=== PATIENT | female | born 1980 | race Caucasian/White ===

== ENCOUNTER 2018-04-16 06:53 | Emergency (ER) | payer MEDICAID ==
--- NOTE | 2018-04-16 08:33 | ER Document Report ---
ED General - General Chief Complaint: Leg Swelling Stated Complaint: RIGHT LEG BURNING Time Seen by Provider: 04/16/18 08:00 TRAVEL OUTSIDE OF THE [place] IN LAST 30 DAYS: No - HPI Notes: Patient is a 37-year-old female with no significant past medical history presents emergency department complaining of bruising to her right lateral calf that she noticed earlier this morning. Patient states that she noticed that her vein was sticking out of her leg yesterday and then noticed the bruising to that area today. Patient states that she does have some soreness associated, but is otherwise able to ambulate without any difficulties. She has not noticed any redness or abscess. Pain does not radiate. Denies any drug allergies. + smoker. Denies any prolonged immobilization, distance travel, recent fay rgery/trauma, personal cancer history, hormone use, or previous DVT/PE. Denies any headache, fever, URI, sore throat, chest pain, palpitations, syncope, cough, shortness of breath, wheeze, dyspnea, abdominal pain, nausea/vomiting/diarrhea, urinary retention, dysuria, hematuria, back pain, loss of control of bowel or bladder, numbness/tingling, saddle anesthesia, muscle paralysis/weakness, or rash. - Related Data Allergies/Adverse Reactions: No Known Allergies Allergy (Verified 04/16/18 08:27) Past Medical History - Social History Smoking Status: Current Every Day Smoker Frequency of alcohol use: None Drug Abuse: None Family History: Reviewed & Not Pertinent Patient has suicidal ideation: No Patient has homicidal ideation: No Renal/ Medical History: Denies: Hx Peritoneal Dialysis Past Surgical History: Reports: Hx Section - x3 Review of Systems - Review of Systems -: Yes All other systems reviewed and negative Physical Exam - Vital signs Vitals: Temp Pulse Resp BP Pulse Ox 98 F 92 18 126/74 H 99 04/16/18 07:02 04/16/18 07:02 04/16/18 07:02 04/16/18 07:02 04/16/18 07:02 - Notes Notes: PHYSICAL EXAMINATION: GENERAL: Well-appearing, well-nourished and in no acute distress. HEAD: Atraumatic, normocephalic. EYES: Pupils equal round and reactive to light, extraocular movements intact, sclera anicteric, conjunctiva are normal. ENT: Nares patent and without discharge. oropharynx clear without exudates. No tonsilar hypertrophy or erythema. Moist mucous membranes. NECK: Normal range of motion, supple without lymphadenopathy LUNGS: Breath sounds clear to auscultation bilaterally and equal. No wheezes rales or rhonchi. HEART: Regular rate and rhythm without murmurs, rubs, gallops. Musculoskeletal: Rt leg: FROM to passive/active. Strength 5+/5. N/V intact distal. No bony tenderness. Extremities: No cyanosis, clubbing, or edema b/l. Peripheral pulses 2+. Capillary refill less than 3 seconds. No LE asymmetry. Lucrecia neg b/l. NEUROLOGICAL: Normal speech, normal gait. Normal sensory, motor exams PSYCH: Normal mood, normal affect. SKIN: Rt LE: there is an area to the anterolateral rt calf that is ecchymotic with mild tenderness associated. No erythema, warmth, or deformity. No fluctuance or streaks. Course - Re-evaluation Re-evalutation: 04/16/18 10:28 Patient is an afebrile, well-hydrated, 37-year-old female who presents emergency department with superficial ecchymosis to her right anterolateral leg. I do suspect this condition to be benign. Vitals are acceptable without significant tachycardia, tachypnea, or hypoxia. PE is otherwise unremarkable for any neurovascular, otherwise, obvious tendon/leg rupture, obvious fracture/dislocation, DVT, septic joint. There is no evidence of foot drop. Doppler ultrasound was unremarkable for any acute pathology. Patient is nont oxic-appearing and is tolerating p.o. without difficulty. She is able to ambulate without any difficulties. No further labs or imaging warranted. Recheck with your PCM in 3-5 days. Return to the ED with any other worsening/concerning symptoms as reviewed. Patient is in agreement. - Vital Signs Vital signs: Temp Pulse Resp BP Pulse Ox 98 F 92 18 126/74 H 99 04/16/18 07:02 04/16/18 07:02 04/16/18 07:02 04/16/18 07:02 04/16/18 07:02 Discharge - Discharge Clinical Impression: Superficial bruising of lower leg Qualifiers: Encounter type: initial encounter Laterality: right Qualified Code(s): S80.11XA - Contusion of right lower leg, initial encounter Condition: Stable Disposition: HOME, SELF-CARE Additional Instructions: Keep the skin clean Wash with soap and water Tylenol/ibuprofen if needed Monitor for any worsening symptoms Recheck with your PCM in 3-5 days Return to the ED with any worsening symptoms and/or development of fever, headache, chest pain, palpitations, syncope, shortness of breath, trouble breathing, abdominal pain, n/v/d, abscess, purulent discharge, red streaks, worsening swelling, or other worsening symptoms that are concerning to you. Forms: Elevated Blood Pressure, Smoking Cessation Education Referrals: KALLI BEAN MD [ACTIVE STAFF] - Follow up as needed
--- NOTE | 2018-04-16 10:07 | RADIOLOGY REPORT (SQ) ---
EXAM DESCRIPTION: VENOUS UNILATERAL LOWER COMPLETED DATE/TIME: 04/16/2018 9:50 am REASON FOR STUDY: Rt lateral calf pain/ecchymosis COMPARISON: None. TECHNIQUE: Dynamic and static huddleston scale and color images acquired of the right leg venous system. S elected spectral images acquired with additional compression and augmentation maneuvers. The contrala teral common femoral vein and saphenofemoral junction were also imaged. Images stored on PACS. LIMITATIONS: None. FINDINGS: COMMON FEMORAL: Normal phasicity, compression and augmentation. No visualized echogenic ma terial on huddleston scale. No defects on color images. FEMORAL: Normal compression and augmentation. No visualized echogenic material on huddleston scale. No defe cts on color images. POPLITEAL: Normal compression, augmentation. No visualized echogenic material on huddleston scale. No defec ts on color images. CALF VESSELS: Normal compression, augmentation. No visualized echogenic material on huddleston scale. No de fects on color images. GSV and SSV: Normal compression, augmentation. No visualized echogenic material on huddleston scale. No def ects on color images. ANY DEEP VENOUS INSUFFICIENCY: Not evaluated. ANY EVIDENCE OF POPLITEAL CYST: No. OTHER: No other significant finding. CONTRALATERAL COMMON FEMORAL VEIN AND SAPHENOFEMORAL JUNCTION: Normal phasicity, compression and augmentation. No visualized echogenic material on huddleston scale. No de fects on color images. IMPRESSION: 1. NO EVIDENCE OF DVT OR SVT IN THE RIGHT LEG. TECHNICAL DOCUMENTATION: JOB ID: [id number] [employer]- All Rights Reserved Reading location - IP/workstation name: [email or web address]
[2018-04-16 10:47] VITALS: BP 115/80
== END 2018-04-16 10:47 | disposition home or self-care (01) ==
LOC: ER 06:53
DX: S80.11XA Contusion of right lower leg, initial encounter (principal); M79.89 Other specified soft tissue disorders; X58.XXXA Exposure to other specified factors, initial encounter; F17.200 Nicotine dependence, unspecified, uncomplicated
CPT/HCPCS: 93971; 99283

== ENCOUNTER 2018-07-15 14:24 | Emergency (ER) | payer SELFPAY ==
[2018-07-15 14:29] VITALS: BP 118/87
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
== END 2018-07-15 15:19 | disposition home or self-care (01) ==
LOC: ER 14:24
DX: S09.92XA Unspecified injury of nose, initial encounter (principal); W22.09XA Striking against other stationary object, initial encounter; Y92.810 Car as the place of occurrence of the external cause; F17.200 Nicotine dependence, unspecified, uncomplicated
CPT/HCPCS: 99283

== ENCOUNTER 2018-10-08 00:46 | Emergency (ER) | payer MEDICAID ==
[2018-10-08 01:03] VITALS: BP 122/71
== END 2018-10-08 05:15 | disposition left against medical advice (07) ==
LOC: ER 00:46
DX: Z53.21 Procedure and treatment not carried out due to patient leaving prior to being seen by health care provider (principal)